=== PATIENT | male | born 1960 | race African-American/Black ===

== ENCOUNTER 2021-01-23 15:04 | Emergency (ER) | payer MEDICAID ==
[~2021-01-23] VITALS: Ht 180.3 cm; Wt 99.8 kg
--- NOTE | 2021-01-23 17:16 | NUR ---
PT SELF PRESENTS TO ED. C/O BEING DEPRESSED FOR COUPLE OF DAYS. PT DENIES SI/HI BUT IS REQUESTING TO GO [facility] TO [facility]. PT IS COOPERATIVE TO STAFF. STABLE VITALS. BELONGINGS PLACED IN SAFE LOCKER. AWAITING MD CEE.
--- NOTE | 2021-01-23 17:17 | NUR ---
BILL ARNOLD AT BEDSIDE FOR EVAL.
--- NOTE | 2021-01-23 17:44 | NUR ---
COVID SWAB DONE AND SENT TO THE LAB
[2021-01-23 18:06] LABS: BASOPHILS % (AUTO) 0.7 % (0.0-2.0); EOSINOPHILS % (AUTO) 7.6 % (0.0-6.0); HEMATOCRIT 47 % (39-51); HEMOGLOBIN 15.1 g/dL (13.5-17.5); LYMPHOCYTES # (AUTO) 1.9 K/uL (0.8-4.8); LYMPHOCYTES % (AUTO) 38.6 % (20.0-44.0); MEAN CORPUSCULAR HGB CONC 32 g/dl (31.0-36.0); MEAN CORPUSCULAR VOLUME 89 fL (80-96); MONOCYTES # (AUTO) 0.6 K/uL (0.1-1.30); MONOCYTES % (AUTO) 12.5 % (2.0-12.0); NEUTROPHILS % (AUTO) 40.6 % (43.0-81.0); PLATELET COUNT (AUTO) 343 K/uL (150-450); RED BLOOD CELL COUNT(AUTO) 5.24 MIL/uL (4.5-6.0); WHITE BLOOD COUNT (AUTO) 4.9 K/uL (4.3-11.0)
[2021-01-23 18:22] LABS: BILIRUBIN,URINE Negative (NEGATIVE); COLOR,URINE YELLOW (YELLOW); LEUKOCYTE ESTERASE ,URINE Negative (NEGATIVE); NITRITE, URINE Negative (NEGATIVE); PH,URINE 5.5 (5.0-8.0); PROTEIN,URINE Negative (NEGATIVE); UGLUCOSE Negative (NEGATIVE); UROBILINOGEN,URINE 0.2 EU/dL (0.2)
[2021-01-23 18:31] LABS: ALANINE AMINOTRANSFERASE 35 U/L (12-78); ALBUMIN 3.5 g/dL (3.4-5.0); ALCOHOL, BLOOD < 3 mg/dL (0-0); ALKALINE PHOSPHATASE 62 U/L (46-116); ASPARTATE AMINOTRANSFERASE 25 U/L (15-37); BILIRUBIN,DIRECT 0.1 mg/dL (0.0-0.2); BILIRUBIN,TOTAL 0.1 mg/dL (0.2-1.0); CALCIUM, SERUM 8.8 mg/dL (8.5-10.1); CARBON DIOXIDE 29 mmol/L (21-32); CHLORIDE 107 mmol/L (98-107); CREATININE 1.1 mg/dL (0.6-1.3); GLUCOSE 93 mg/dL (74-106); POTASSIUM 4.1 mmol/L (3.5-5.1); SODIUM SERUM 142 mmol/L (136-145); TOTAL PROTEIN, SERUM 7.7 g/dL (6.4-8.2); UREA NITROGEN, BLOOD 9 mg/dL (7-18)
[2021-01-23 18:33] LABS: ACETAMINOPHEN < 2 ug/ml (10-30)
--- NOTE | 2021-01-23 19:14 | NUR ---
FACESHEET AND CLINICALS FAXED TO [facility].
[2021-01-23 19:42] VITALS: BP 156/98
--- NOTE | 2021-01-23 23:06 | NUR ---
PT ACCEPTED TO [facility] BY DR BOOKER # FOR REPORT [phone]
--- NOTE | 2021-01-23 23:21 | NUR ---
[facility] CALLED FOR TRANSPORT. ETA 45 MINUTES.
--- NOTE | 2021-01-23 23:25 | NUR ---
REPORT GIVEN TO SARAH BOSWELL
--- NOTE | 2021-01-24 00:37 | NUR ---
REPORT GIVEN TO EMT, PT WILL BE TRANSFERED.
== END 2021-01-24 00:38 ==
LOC: ER 15:10
DX: F32.9 Major depressive disorder, single episode, unspecified (principal); R45.851 Suicidal ideations; Z20.822 Contact with and (suspected) exposure to COVID-19
CPT/HCPCS: 36415; 80048; 80076; 80143; 80307; 80320; 81003; 85025; 87426; 99285; C9803; G0480

== ENCOUNTER 2021-05-25 14:53 | Emergency (ER) | payer MEDICAID ==
[~2021-05-25] VITALS: Ht 180.3 cm; Wt 91.6 kg
[2021-05-25 15:01] VITALS: BP 120/63
--- NOTE | 2021-05-25 15:21 | NUR ---
SEEN AND EXAMINED BY .
[2021-05-25] MEDS ORDERED: IBUPROFEN 600 MG TABLET PO ONE (15:30)
[2021-05-25] MEDS ORDERED: IBUPROFEN 600 MG TABLET ONE (15:34)
[2021-05-25] MEDS ORDERED: METH-647 PO (16:59)
[2021-05-25] MEDS ORDERED: IBUP-1957 PO (16:59)
--- NOTE | 2021-05-25 17:14 | NUR ---
Patient discharged to home in stable condition. Written and verbal after care instructions given. Patient verbalizes understanding of instruction.
== END 2021-05-25 17:15 | disposition home or self-care (01) ==
LOC: ER 14:55
DX: M54.32 Sciatica, left side (principal); Z60.2 Problems related to living alone
CPT/HCPCS: 72131-TC